=== PATIENT | female | born 1995 | race African-American/Black ===

== ENCOUNTER 2018-08-26 21:22 | Emergency (ER) | payer MEDICAID ==
[~2018-08-26] VITALS: Ht 157.5 cm; Wt 49.2 kg
[2018-08-26] MEDS ORDERED: ONDANSETRON 4 MG ORAL DISINTEGRATING TAB (Q0162 PER 1MG) PO ONE (22:00)
[2018-08-26 22:11] LABS: BASO % 0.4 % (0.0-1.0); EOS # 0.1 10^3/uL (0.0-0.50); EOS % 0.7 % (0.0-3.0); HEMATOCRIT 31.7 % (36.0-47.0); HEMOGLOBIN 11.2 g/dl (12.0-15.5); LYMPH % 30.8 % (24.0-44.0); MEAN CORPUSCULAR HEMOGLOBIN 31.7 pg (27.0-33.0); MEAN CORPUSCULAR HGB CONC 35.3 g/dl (32.0-36.5); MEAN CORPUSCULAR VOLUME 89.8 fl (80.0-96.0); MONO # 0.7 10^3/uL (0.0-0.8); NEUTROPHILS # 5.9 10^3/uL (1.8-7.7); NEUTROPHILS % 60.8 % (36.0-66.0); PLATELET COUNT, AUTOMATED 177 10^3/uL (150-450); RED BLOOD COUNT 3.53 10^6/uL (4.00-5.40); WHITE BLOOD COUNT 9.8 10^3/uL (4.0-10.0)
--- NOTE | 2018-08-26 22:39 | REPVR ---
EXAM: US First Trimester, Transabdominal EXAM DATE/TIME: 08/26/2018 10:14 PM CLINICAL HISTORY: 22 years old, female; complicated by abdominal or pelvic pain; Lower; First trimester; Gestational age or lmp: 10w 1d; ; Patient HX: Patient states only cramping, no vaginal bleeding TECHNIQUE: Imaging protocol: Real-time transabdominal obstetrical ultrasound of the maternal pelvis and a first trimester , less than 14 weeks 0 days, with image documentation. COMPARISON: No relevant prior studies available. FINDINGS: GESTATION: Gestation: An intrauterine gestational sac is identified on both sagittal images and transverse images. Placenta: There is good decidual reaction with no evidence of subchorionic hemorrhage. Amniotic fluid: Amniotic fluid is normal for gestational age. Abdomen: The urinary bladder is empty and cannot be evaluated. BIOMETRY: Estimated gestational age: The pole is identified and estimated at 10 weeks 1 day. There is good cardiac activity of the fetus 171 beats per minute. This was a transabdominal ultrasound only. This is very early in gestation and all parameters regarding the fetus cannot be assessed. The patient should have a survey at 18- 20 weeks gestation for complete evaluation. Right adnexa: The right ovary measures 2.8 CM in length by 2.1 CM in thickness. There is vascular flow of the right ovary. Left adnexa: The left ovary measures 3.4 CM in length x 1.8 CM in thickness. There is vascular flow the left ovary. Intraperitoneal: There is no evidence of free fluid in the pelvis. IMPRESSION: 1. An intrauterine gestational sac is present. 2. A pole is identified and estimated at 10 weeks 1 day. This is very early in gestation and all parameters cannot be assessed therefore a complete survey should be performed at 18-20 weeks gestation. Electronically signed by: Hu Hernandez On 08/26/2018 22:38:31 PM
[2018-08-26 22:51] LABS: BLOOD UREA NITROGEN 8 MG/DL (7-18); CARBON DIOXIDE LEVEL 24 MEQ/L (21-32); CHLORIDE LEVEL 106 MEQ/L (98-107); CREATININE FOR GFR 0.59 MG/DL (0.55-1.30); GLOMERULAR FILTRATION RATE > 60.0 (>60); GLUCOSE, FASTING 77 MG/DL (70-100); HCG, SERUM QUANTITATIVE 88367 MIU/ML; POTASSIUM SERUM 3.9 MEQ/L (3.5-5.1); SODIUM LEVEL 137 MEQ/L (136-145)
[2018-08-26] MEDS ORDERED: BACT800T5 PO (23:47)
[2018-08-26] MEDS ORDERED: REGL10TA6 PO (23:48)
[2018-08-27] VITALS: BP 118/86
== END 2018-08-27 | disposition home or self-care (01) ==
LOC: M ED 21:22
DX: O26.891 Other specified pregnancy related conditions, first trimester (principal); R10.2 Pelvic and perineal pain; Z3A.10 10 weeks gestation of pregnancy
CPT/HCPCS: 36415; 76801; 80048; 81001; 84702; 85025; 86850; 86900; 86901; 87086; 99284; Q0162

== ENCOUNTER 2018-12-01 21:44 | Emergency (ER) | payer MEDICAID, OTHER ==
[~2018-12-01] VITALS: Ht 160 cm; Wt 55.4 kg
[~2018-12-01 21:44] MED LIST: BACT800T5 PO; REGL10TA6 PO
[2018-12-01 23:36] VITALS: BP 113/62
--- NOTE | 2018-12-02 09:30 | REP ---
REASON: Trauma two weeks ago, having persistent pain. FINDINGS: No acute fracture or destructive osseous lesion. Electronically Signed by Enzo De Jesus DO 12/02/2018 09:43 A
== END 2018-12-01 23:39 | disposition home or self-care (01) ==
LOC: M ED 21:44
DX: M79.661 Pain in right lower leg (principal)

== ENCOUNTER → 2018-12-12 | Outpatient (REF) | payer OTHER | LOC: M LAB REF 16:56 | PROVIDERS: ATTEND Nurse Practitioner Women's Health | DX: N76.0 Acute vaginitis (principal); N92.5 Other specified irregular menstruation ==

== ENCOUNTER → 2020-02-13 | Outpatient (CLI) | payer SELFPAY | LOC: M LABSMTC 12:09 | PROVIDERS: ATTEND Pediatrics | DX: Z11.59 Encounter for screening for other viral diseases (principal) ==

== ENCOUNTER → 2020-03-08 | Outpatient (CLI) | payer SELFPAY | LOC: M LABSMTC 10:12 | PROVIDERS: ATTEND Pediatrics | DX: Z20.822 Contact with and (suspected) exposure to COVID-19 (principal) ==

== ENCOUNTER → 2020-03-27 | Outpatient (REF) | payer OTHER | LOC: M LAB REF 12:42 | PROVIDERS: ATTEND Obstetrics & Gynecology | DX: Z34.83 Encounter for supervision of other normal pregnancy, third trimester (principal) ==